=== PATIENT | female | born 1950 | race Caucasian/White ===

== ENCOUNTER 2019-04-13 05:09 | Day surgery (SDC) | payer MEDICARE, OTHER ==
[2019-04-13] MEDS ORDERED: LACTATED RINGERS 1,000 ML ONE (07:13)
[2019-04-13] MEDS ORDERED: LACTATED RINGERS 1,000 ML BAG IV ONE (09:45)
[2019-04-13] MEDS ORDERED: LACTATED RINGERS 1,000 ML IVS ONE (09:45)
[2019-04-13] MEDS ORDERED: BUPIVACAINE 0.5% W/EPI 30 ML VIAL INJ ONE (09:50)
[2019-04-13] MEDS ORDERED: LIDOCAINE 1% 10 ML VIAL INJ ONE (10:00)
[2019-04-13] MEDS ORDERED: PROPOFOL 200 MG/20 ML VIAL IV ONE (10:00)
[2019-04-13] MEDS ORDERED: MIDAZOLAM INJ 5 MG/5 ML VIAL ONE (10:10)
[2019-04-13] MEDS ORDERED: fentaNYL CITRATE INJ 50 MCG/ML AMP ONE (10:10)
[2019-04-13 10:18] VITALS: O2SAT 97
--- NOTE | 2019-04-13 11:14 | OP ---
DATE OF PROCEDURE: 04/13/19 PREOPERATIVE DIAGNOSIS: 1. Subcutaneous upper back mass. POSTOPERATIVE DIAGNOSIS: 1. Subcutaneous upper back mass. PROCEDURE: 1. Excision, subcutaneous upper back mass, 7 cm. SURGEON: Fernando Lincoln MD. ANESTHESIA: General and local. FINDINGS: It was a well-circumscribed fatty tumor going down to but not invading the muscle. COMPLICATIONS: None. ESTIMATED BLOOD LOSS: Minimal. CONDITION: Stable. PLAN: Discharge. INDICATION: As stated. PROCEDURE: In the lateral position, general anesthesia was induced. When she was comfortable, local anesthesia was placed in the incision and surrounding tissue. We made the incision transversely over the mass, identifying the edges of the mass. It was shelled out from the surrounding tissues nicely. Minimal hemostasis was necessary. We placed deeper local and around the area for comfort. The wound was then closed in 2 layers of absorbable suture and dressing was applied. She was awakened and taken to Recovery to be discharged. #[id number] [facility]
[2019-04-13 12:34] VITALS: BP 151/52; TEMP 96.8
== END 2019-04-13 11:53 | disposition home or self-care (01) ==
LOC: AMB 05:09
PROVIDERS: ATTEND Surgery
DX: D17.1 Benign lipomatous neoplasm of skin and subcutaneous tissue of trunk (principal); E78.00 Pure hypercholesterolemia, unspecified; R00.1 Bradycardia, unspecified; Z87.891 Personal history of nicotine dependence; Z85.3 Personal history of malignant neoplasm of breast; Z79.82 Long term (current) use of aspirin; Z79.899 Other long term (current) drug therapy
CPT/HCPCS: 00300; 21931; 36415; 80048; 85025; 88304; 93005; J2250; J3010; J3490; J7120

== ENCOUNTER → 2020-06-10 | Outpatient (CLI) | payer MEDICARE, OTHER ==
--- NOTE | 2020-06-13 15:15 | US ---
EXAM DESCRIPTION: 3D Diagnostic, Left: Digital Mammography CLINICAL HISTORY: 69 yearsFemaleANNUAL SCREENING personal history right breast cancer 2013. Right mastectomy. Itching of the left nipple with discoloration. Mother with history of breast cancer. Menarche age 10. Childbirth age 20. Menopause age 47. No HRT. Lifetime risk of developing breast cancer (Tyrer-Cuzick model) percentage is not calculated due to personal history of breast cancer. COMPARISON: Not yet available for comparison. No prior reports available.. TECHNIQUE: Left breast LM, CC, and MLO projection full-field images, digital mammographic tomosynthesis technique. LM, CC, and MLO 2-D digital full-field MLO images left breast. CAD not available. FINDINGS: The breast parenchymal density pattern is: Scattered areas of fibroglandular density. No skin thickening or nipple retraction scattered solitary microcalcifications. No Retroareolar mass. No focal, stellate mass or density, focal asymmetry , and no suspicious microcalcifications left breast. Ultrasound: Scanning retroareolar left breast. Mostly fatty tissues with minimal fibroglandular tissues. Anechoic oval-shaped parallel structure with posterior acoustic enhancement measuring 3.3 x 4.1 x 1.7 mm. Nonvascular. Most likely a cyst. IMPRESSION: Benign exam. BIRAD CATEGORY: 2 BENIGN FINDINGS. RECOMMENDATIONS: FOLLOW UP: Routine digital left breast mammographic screening, one year interval from May 2020. Written communication explaining the IMPRESSION and follow-up, will be mailed to the patient and referring health care provider. The FINDINGS and the FOLLOW-UP plan were reviewed in person with the patient after the examination. According to the [employer], yearly mammograms are recommended starting at age 40 and continuing as long as a woman is in good health. Any breast change noted on a breast self-exam should be reported promptly to the patient's healthcare provider. Breast MRI is recommended for women with an approximately 20-25% or greater lifetime risk of breast cancer, including women with a strong family history of breast or ovarian cancer and women who have been treated for Hodgkin's disease. A negative mammographic report should not delay tissue diagnosis in patients with significant clinical history or physical findings. Extremely dense breast tissue limits the sensitivity of digital mammography. Electronically signed by: Jamie Scott MD 06/13/2020 3:13 PM CDT
== END ==
LOC: MAMMO 13:00
PROVIDERS: ATTEND General Practice
DX: N64.59 Other signs and symptoms in breast (principal)
CPT/HCPCS: 76641; 77065; G0279